=== PATIENT | female | born 1990 | race Caucasian/White ===

== ENCOUNTER → 2018-06-08 | Outpatient (CLI) | payer MEDICAID, SELFPAY ==
[2018-06-08] VITALS (8 sets, daily range): BP systolic 100–126; BP diastolic 57–96; PULSE 67–73; RESP 16–18; TEMP 36.6; O2SAT 98–100; BMI 40.0
--- NOTE | 2018-06-08 | LIVB_PTH ---
PATIENT: ALMA DELIA ADAMS LOC: CT U#:[id number] AGE/SX: 28/F ROOM: RE06/08/[address]: Dr. Bernardo Velasco MD : 1990 BED: DIS: 06/08/2018 SPEC #: [id number] RECD: 06/08/18 10:56 STATUS: IZABELA LISBET #: [id number] DOLLY: 06/08/18 00:[address]: Bernardo Velasco DEPT: SURGICAL PATHOLOGY RECD BY: Tom Zuniga ENTERED: 06/08/18 11:09 SP TYPE: LIVER BX OTHR DR: Cris Meyers, CLEANING MAID-C Tissues: Liver, NOS Procedures: PAS with Diastase (control) Trichrome (control) Special Stain Group II PAS Stain (control) Surgery Specimen Level V Retic (control) Iron Stain (control) HEADER OPERATION: CT-guided liver biopsy PRE-OP DIAGNOSIS: Elevated liver enzymes TISSUE SUBMITTED: Liver 18 gauge core x3 MICROSCOPIC DIAGNOSIS Liver, CT-guided biopsy: Chronic hepatitis, grade 1, stage 0 (Modified Knodell Scoring) See comment. AM:kelvin 06/09/18 COMMENT Sections show portal inflammation without significant necrosis. Trichrome stain does not reveal cirrhosis or fibrosis. Reticulin stain reveals a normal hepatic parenchymal architecture. Iron stain does not reveal intraparenchymal deposition of iron. PAS stain with and without diastase does not reveal accumulation of abnormal proteins. All special stains are accompanied with appropriate controls. Clinical correlation is suggested. Case has been reviewed in consultation with Dr. Montemayor who concurs with the above diagnosis. IDC:LIVIA MICROSCOPIC DESCRIPTION Slides are reviewed. GROSS DESCRIPTION Received in fixative is one container labeled with the patient's name and designated CT-guided liver biopsy. The specimen consists of multiple irregular fragments of blum soft tissue that in aggregate measure 2 x 0.2 x 0.1 cm. The specimen is totally submitted in one cassette. / LIVIA:kelvin 06/08/18 TC:3 CPT: 37557, 87611 x5
--- NOTE | 2018-06-08 09:37 | CT_ITS ---
PROCEDURE: CT DIRECTED CORE LIVER BIOPSY INDICATION: Female, 28 years old. Elevated liver enzymes. PHYSICIAN: Dr. Roland CONSENT: Written informed consent was obtained having explained the risks, benefits and alternatives in detail with the patient who accepted the risks and agreed to proceed. Laboratory review and clinical assessment was performed. CONSCIOUS SEDATION PROTOCOL: The Drugs used were: 2 mg Versed, IV. The sedation time was: 26 minutes. Contrast sedation was started at 10:17 AM and terminated at 10:43 AM. The conscious sedation protocol was independently monitored. RADIATION DOSAGE (If Supplied By Facility): CTDIvol = ( 12.6 ) mGy, DLP = ( 400.59 ) mGycm Individualized dose optimization techniques were used for this CT. TECHNIQUE: Using CT image guidance with image documentation, a suitable location in the right lobe of the liver was identified. Using a right lateral approach, puncture of the liver was uneventful with an 18-gauge core needle system. 3 18-gauge core samples were obtained, and submitted in formalin to the pathologist for further assessment. Followup CT scan revealed no distinct sequelae. CT/Biopsy/Inj or Needle Placement IMPRESSION: 1. CT directed core needle biopsy of the liver, using CT image guidance with image documentation as described. 2. Conscious Sedation protocol utilized with independent monitoring. Electronically Signed: Roderick Roland, at 13:37 EDT , Service support ,
[2018-06-08 09:39] LABS: Platelet Count 225 K/mm3 (150-450)
[2018-06-08 09:48] LABS: Prothrombin Time (Protime)PT. 12.9 SECONDS (11.7-14.9)
[2018-06-08 09:49] LABS: Partial Thromboplast Time 25.9 Seconds (24.1-36.2)
[2018-06-08] MEDS: Midazolam 2 MG/2 ML Syringe IV ×2 (10:17→10:35)
== END | disposition home or self-care (01) ==
PROVIDERS: Family Provider Nurse Practitioner Family; PCP Nurse Practitioner Family; Referring Provider Internal Medicine Gastroenterology; Visit Provider Internal Medicine Gastroenterology
DX: R74.8 Abnormal levels of other serum enzymes (principal)
CPT/HCPCS: 47000; 36415; 77012; 85049; 85610; 85730; 88307; 88313; 99156; 99157; J7040